=== PATIENT | male | born 1975 | race African-American/Black ===

== ENCOUNTER 2021-08-11 19:41 | Inpatient (IN) ==
[2021-08-11] MEDS ORDERED: fentaNYL 100 MCG/2 ML VIAL ONE (20:21)
[2021-08-11] MEDS ORDERED: MIDAZOLAM 2 MG/2 ML VIAL ONE (20:21)
[2021-08-11] MEDS ORDERED: ASPIRIN 325 MG TABLET ONE (20:50)
[2021-08-11] MEDS ORDERED: ENOXAPARIN 60 MG/0.6 ML SYRINGE ONE (21:15)
[2021-08-11] MEDS ORDERED: TIROFIBAN 5,000 MCG/100 ML PREMIX IV ONE (21:16)
[2021-08-11] MEDS ORDERED: TICAGRELOR 90 MG TABLET ONE (21:43)
[2021-08-11] MEDS ORDERED: ZALEPLON 5 MG CAPSULE PO PRN (22:10)
[2021-08-11] MEDS ORDERED: HYDROmorphone 1 MG/1 ML SYRINGE IV PRN (22:10)
[2021-08-11] MEDS ORDERED: ONDANSETRON 4 MG/2 ML VIAL IV PRN (22:10)
[2021-08-11] MEDS ORDERED: NITROGLYCERIN SL 0.4 MG TABLET SL PRN (22:10)
[2021-08-11] MEDS ORDERED: DEXTROSE 5% NACL 0.45% 1,000 ML IV SCH (22:30)
[2021-08-12 04:32] LABS: Basophils % 0.2 % (0.0-0.8); Hematocrit 44.2 VOL% (42.0-52.0); Hemoglobin 14.9 GM/DL (14.0-18.0); Immature Granulocytes Absolute 0.17 #; Lymphocytes # 1.4 10*3/uL (1.4-4.0); Lymphocytes % 7.9 % (21.2-54.2); Mean Corpuscular HGB Conc 33.7 GM/DL (32-36); Mean Corpuscular Volume 90.8 FL (87-102); Mean Platelet Volume 12.4 FL (9.6-12.0); Monocytes % 10.6 % (1.7-12.7); Neutrophils % 80.3 % (38.7-73.9); Platelet Count 213 T/CUMM (130-400); Red Blood Count 4.87 MC/CUMM (3.8-5.5); Red Cell Distribution Width 13.7 % (9.3-17.3); White Blood Count 17.7 T/CUMM (4-12)
[2021-08-12 04:51] LABS: Calcium 8.7 MG/DL (8.5-10.1); Osmolality,Calculated 273.8 MOS/KG (273-304); Potassium 3.5 MMOL/L (3.5-5.1)
[2021-08-12 08:38] VITALS: BP 115/58
[2021-08-12 09:27] LABS: Barbiturates Screen,Urine Negative (Negative); Benzodiazepines Screen,Urine Positive (Negative); Cannabinoid Screen,Urine Positive (Negative); Opiate Screen,Urine Positive (Negative); Phencyclidine Screen,Urine Negative (Negative)
[2021-08-12] MEDS: TICAGRELOR 90 MG TABLET PO SCH ×2 (10:11→20:51)
[2021-08-12] MEDS: ASPIRIN EC 81 MG TABLET PO SCH (10:11)
[2021-08-12] MEDS: carvediloL 6.25 MG TABLET PO SCH ×2 (10:11→20:51)
[2021-08-12] MEDS: PANTOPRAZOLE 40 MG TABLET PO SCH (10:11)
[2021-08-12] MEDS: VALSARTAN 80 MG TABLET PO SCH (10:11)
[2021-08-12] MEDS: ATORVASTATIN 40 MG TABLET PO SCH (20:51)
[2021-08-13 05:15] LABS: Basophils % 0.2 % (0.0-0.8); Eosinophils % 0.1 % (0.00-10.9); Hematocrit 41.1 VOL% (42.0-52.0); Hemoglobin 13.7 GM/DL (14.0-18.0); Immature Granulocytes % 0.8 %; Immature Granulocytes Absolute 0.11 #; Lymphocytes % 14.1 % (21.2-54.2); Mean Corpuscular HGB Conc 33.3 GM/DL (32-36); Mean Corpuscular Volume 90.7 FL (87-102); Monocytes % 10.4 % (1.7-12.7); Neutrophils % 74.4 % (38.7-73.9); Platelet Count 203 T/CUMM (130-400); Red Blood Count 4.53 MC/CUMM (3.8-5.5); Red Cell Distribution Width 13.8 % (9.3-17.3); White Blood Count 14.1 T/CUMM (4-12)
[2021-08-13 05:35] LABS: Calcium 8.6 MG/DL (8.5-10.1); Osmolality,Calculated 273.8 MOS/KG (273-304); Potassium 3.1 MMOL/L (3.5-5.1)
[2021-08-13] MEDS: VALSARTAN 80 MG TABLET PO SCH (08:41)
[2021-08-13] MEDS: carvediloL 6.25 MG TABLET PO SCH ×2 (08:42→20:14)
[2021-08-13] MEDS: PANTOPRAZOLE 40 MG TABLET PO SCH (08:42)
[2021-08-13] MEDS: TICAGRELOR 90 MG TABLET PO SCH ×2 (08:42→20:14)
[2021-08-13] MEDS: ASPIRIN EC 81 MG TABLET PO SCH (08:43)
[2021-08-13 17:33] LABS: Mucus,Urine Moderate /LPF (Occasional); RBC,Urine 2 /HPF (0-4)
[2021-08-13 17:38] LABS: Urine Appearance Clear (Clear); Urine Color Yellow (Yellow); Urine Specific Gravity >= 1.030 (1.001-1.035)
[2021-08-13 17:39] LABS: Bilirubin,Urine Small mg/dL (Negative); Blood, Urine Negative (Negative); Glucose,Urine (UA) Negative (Negative); Ketones,Urine Negative (Negative); Nitrite,Urine Negative (Negative); Protein,Urine Negative (Negative)
[2021-08-13] MEDS: ATORVASTATIN 40 MG TABLET PO SCH (20:13)
[2021-08-14 05:31] LABS: Basophils % 0.3 % (0.0-0.8); Eosinophils % 0.2 % (0.00-10.9); Hematocrit 39.6 VOL% (42.0-52.0); Hemoglobin 13.2 GM/DL (14.0-18.0); Immature Granulocytes % 0.7 %; Immature Granulocytes Absolute 0.08 #; Lymphocytes # 1.5 10*3/uL (1.4-4.0); Lymphocytes % 13.2 % (21.2-54.2); Mean Corpuscular HGB Conc 33.3 GM/DL (32-36); Mean Corpuscular Volume 90.6 FL (87-102); Mean Platelet Volume 12.2 FL (9.6-12.0); Neutrophils % 75.6 % (38.7-73.9); Platelet Count 210 T/CUMM (130-400); Red Blood Count 4.37 MC/CUMM (3.8-5.5); Red Cell Distribution Width 13.5 % (9.3-17.3); White Blood Count 11.2 T/CUMM (4-12)
[2021-08-14 05:47] LABS: Calcium 8.6 MG/DL (8.5-10.1); Osmolality,Calculated 278.5 MOS/KG (273-304); Potassium 3.2 MMOL/L (3.5-5.1)
[2021-08-14] MEDS ORDERED: POTASSIUM CHLORIDE 20 MEQ TABLET PO PRN (07:08)
[2021-08-14] MEDS: VALSARTAN 80 MG TABLET PO SCH (08:46)
[2021-08-14] MEDS: ASPIRIN EC 81 MG TABLET PO SCH (08:46)
[2021-08-14] MEDS: TICAGRELOR 90 MG TABLET PO SCH (08:46)
[2021-08-14] MEDS: PANTOPRAZOLE 40 MG TABLET PO SCH (08:46)
[2021-08-14] MEDS ORDERED: POTASSIUM CHLORIDE 20 MEQ TABLET PO ONE (09:00)
[2021-08-14] MEDS ORDERED: carvediloL 3.125 MG TABLET PO SCH (09:00)
== END 2021-08-14 11:10 | disposition home or self-care (01) | DRG 247 ==
LOC: N.CL 19:41 → N.ICU 22:07
PROVIDERS: ADMIT Internal Medicine Interventional Cardiology; ATTEND Internal Medicine Interventional Cardiology
PROC: CLCCHCL (ICD-10-PCS; 2021-08-11 20:45)